=== PATIENT | female | born 1990 | race Caucasian/White ===

== ENCOUNTER 2016-11-15 10:17 | Emergency (ER) | payer OTHER ==
[2016-11-15 10:25] VITALS: RESP 16; O2SAT 99
--- NOTE | 2016-11-15 10:34 | EDPHY ---
H & P Stated Complaint: Bronchial/throat burning since yesterday;increases w/movement and breathing Time Seen by Provider: 11/15/16 10:34 Source: Patient Exam Limitations: No limitations - Personal History LMP (Females 10-55): 22-28 Days Ago Current Tetanus Diphtheria and Acellular Pertussis (TDAP): Yes - Medical/Surgical History Other PMH: healthy - Social History Smoking Status: Never smoked Constitutional: Initial Vital Signs Temperature (C) 36.7 C 11/15/16 10:20 Heart Rate 88 11/15/16 10:20 Respiratory Rate 16 11/15/16 10:20 Blood Pressure 124/87 H 11/15/16 10:20 O2 Sat (%) 99 11/15/16 10:20 O2 Delivery Mode Room Air Allergies/Adverse Reactions: No Known Allergies Allergy (Unverified 11/15/16 10:21) Home Medications: Medication Instructions Recorded Control Pill 11/15/16 Ibuprofen [Motrin] 800 mg PO Q8 #20 tab 11/15/16 Medical Decision Making ED Course/Re-evaluation: CHIEF COMPLAINT: Chest pain HISTORY OF PRESENT ILLNESS: The patient is a 26-year-old female presenting with chest pain that started around 10pm last night. The pain is worse with deep inhalation and when bending forward. The patient has been on a [address] trip[address] She has been in the car for upwards of 5 hours at a time. She denies calf pain. She denies recent URI symptoms. REVIEW OF SYSTEMS: A 10 point review of systems was performed and is negative with the exception of the elements mentioned in the history of present illness. PHYSICAL EXAM: HR, BP, O2 Sat, RR. Temp noted General Appearance: Alert, well hydrated, appropriate, and non-toxic appearing. Head: Atraumatic without scalp tenderness or obvious injury Eyes: Pupils equal, round, reactive to light and accommodation, EOMI, no trauma , no injection. Ears: Clear bilaterally, no perforation, normal landmarks Nose: Atraumatic, no rhinorrhea, clear. Throat: There is no erythema or exudates, no lesions, normal tonsils, mucus membranes moist. Neck: Supple, 2+ carotid upstroke, nontender, no lymphadenopathy. Respiratory: No retractions, no distress, no wheezes, and no accessory muscle use. Lungs are clear to auscultation bilaterally. Cardiovascular: Regular rate and rhythm, Heart rate increases when leaning forward. Friction rub. Bilateral carotid, radial, dorsalis pedis, and posterior tibial pulses intact. Good capillary refill all extremities. Gastrointestinal: Abdomen is soft, nontender, non-distended, no masses, no rebound, no guarding, no peritoneal signs. Musculoskeletal: Normal active ROM of all extremities, atraumatic. Neurological: Alert, appropriate, and interactive. The patient has normal DTRs and non-focal cranial nerves, motor, sensory, and cerebellar exam. Skin: No rashes, good turgor, no nodules on palpation. Past medical history: Denies. Past surgical history: Denies. Family history: Noncontributory. Social history: Very active. Nonsmoker. DIAGNOSTICS/PROCEDURES/CRITICAL CARE TIME: The 12 lead EKG was interpreted by myself. See hard copy and/or "tracemaster" electronic copy for interpretation. No ST changes. VA depression in various leads. DIFFERENTIAL DIAGNOSIS: The differential diagnosis for the patient's chest pain included but was not limited to pericarditis, myocardial ischemia, pulmonary embolus, chest wall pain, pleural inflammation, and pulmonary infectious causes. MEDICAL DECISION MAKING: Patient presents with acute chest pain that started last night. Pain is worse with deep inhalation and when leaning forward. On exam patient has slight friction rub and heart rate increases when I lean her forward. EKG shows No ST changes. There are VA depressions in a number of leads suggestive of Pericarditis. Plan for to check D-dimer. D-dimer is normal. I discussed findings with the patient. Patient will be discharged home with 800mg Ibuprofen. - Data Points Laboratory Results: 11/15/16 11:30 D-Dimer < 0.27 ug/mLFEU ug/mLFEU (0.00-0.50) Medications Given: Discontinued Medications Ibuprofen (Motrin) 800 mg PO EDNOW ONE Stop: 11/15/16 11:23 Last Admin: 11/15/16 11:32 Dose: Not Given Departure - Departure Disposition: Home, Routine, Self-Care Clinical Impression: Pericarditis Qualifiers: Pericarditis type: unspecified type Chronicity: acute Qualified Code(s): I30.9 - Acute pericarditis, unspecified Condition: Good Instructions: Acute Pericarditis (ED) Additional Instructions: Take 800mg Ibuprofen every 8 hours as needed for pain. Followup with your primary care physician when you return home. 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 Please call to arrange followup as needed. Referrals: Janae Carolina MD [[facility] [place] Primary Care Provider] - As per Instructions Prescriptions: Ibuprofen [Motrin] 800 mg PO Q8 #20 tab Report Scribed for: Keaton Long Report Scribed by: Ira Zimmerman Date of Report: 11/15/16 Time of Report: 11:07
--- NOTE | 2016-11-15 10:34 | CPEKG ---
Heart Rate: 88 RR Interval: 682 P-R Interval: 140 QRSD Interval: 74 QT Interval: 364 QTC Interval: 441 P [place]: 36 QRS [place]: 22 T Wave [place]: 23 EKG Severity - NORMAL ECG - EKG Impression: SINUS RHYTHM Electronically Signed By: Keaton Long 15-Nov-2016 15:00:40
[2016-11-15] MEDS ORDERED: IBUPROFEN 800 MG TAB PO ONE (11:22)
[2016-11-15] MEDS ORDERED: IBUPROFEN 200 MG TAB PO ONE (11:30)
[2016-11-15] MEDS ORDERED: IBUPROFEN 600 MG TAB PO ONE (11:30)
[2016-11-15 13:48] VITALS: BP 121/78; PULSE 82
[2016-11-15 13:49] VITALS: TEMP 97.9
== END 2016-11-15 13:49 | disposition home or self-care (01) ==
DX: I30.9 Acute pericarditis, unspecified (principal)